=== PATIENT | female | born 1995 | race African-American/Black ===

== ENCOUNTER 2017-05-28 07:13 | Emergency (ER) | payer MEDICAID, MEDICARE ==
[~2017-05-28] VITALS: Ht 149.9 cm; Wt 41.0 kg
[2017-05-28 07:34] VITALS: BP 113/65
== END 2017-05-28 11:11 | disposition home or self-care (01) ==
LOC: ER 07:55
DX: J06.9 Acute upper respiratory infection, unspecified (principal); F12.10 Cannabis abuse, uncomplicated
CPT/HCPCS: 71020; 81025; 87804; 99285